=== PATIENT | female | born 1980 | race Caucasian/White ===

== ENCOUNTER 2021-03-21 12:04 | Emergency (ER) | payer OTHER ==
[~2021-03-21] VITALS: Ht 160 cm; Wt 77.1 kg
--- NOTE | 2021-03-21 12:08 | NUR ---
Patient to ER bed 05 to gown for evaluation. Side rails up.
--- NOTE | 2021-03-21 12:10 | NUR ---
Pt brought by self, A&Ox4, pt presents to ER with headache,weakness, nausea and bright red rectal bleed since Friday evening,skin pink and warm, cap refill <3, VSS, respirations even and unlabored, will cont to monitor.
[2021-03-21 12:31] VITALS: BP_SYST 105
--- NOTE | 2021-03-21 13:11 | NUR ---
PIV: 20G PIV STARTED TO RIGHT AC, PT TOLERATED WELL NO SIGNS OF INFILTRATION NOTED.
--- NOTE | 2021-03-21 13:15 | NUR ---
ROSIBEL Mohr at bedside examining patient.
--- NOTE | 2021-03-21 13:21 | NUR ---
C/C: PATIENT STATES SHE NOTICIED BRIGHT RED BLOOD COMING FROM HER RECTUM X 3 DAYS, COMPLAINS OF OWER ABD PAIN AND SEVERE NAUSEA. PATIENT STATES SHE HAS NOT EATEN ANYTHING X 3 DAYS DUE TO PAIN AND DISCOMFORT.
--- NOTE | 2021-03-21 13:46 | NUR ---
RN ROUNDS: PATIENT IN NO ACUTE DISTRESS, BED LOW AND LOCKED FOR SAFETY.
--- NOTE | 2021-03-21 14:15 | NUR ---
PATIENT BROUGHT TO CT SCAN
--- NOTE | 2021-03-21 14:30 | NUR ---
PATIENT RETURNED FROM CT SCAN
[2021-03-21 15:00] LABS: BASOPHILS # (AUTO) 0.1 K/uL (0.0-0.2); BASOPHILS % (AUTO) 0.7 % (0.0-2.0); EOSINOPHILS # (AUTO) 0.1 K/uL (0.0-0.4); EOSINOPHILS % (AUTO) 1.4 % (0.0-4.0); HEMATOCRIT 41.2 % (36-48); HEMOGLOBIN 14.2 g/dL (12.0-16.0); LYMPHOCYTES # (AUTO) 2.2 K/uL (1.0-5.5); LYMPHOCYTES % (AUTO) 23.2 % (20.5-51.5); MEAN CORPUSCULAR HEMOGLOBIN 30 pg (27-31); MEAN CORPUSCULAR HGB CONC 34 % (32-36); MEAN CORPUSCULAR VOLUME 86 fL (79.0-98.0); MONOCYTES # (AUTO) 0.7 K/uL (0.0-1.0); MONOCYTES % (AUTO) 7.3 % (1.7-9.3); NEUTROPHILS # (AUTO) 6.5 K/uL (1.8-7.7); NEUTROPHILS % (AUTO) 67.4 % (40.0-70.0); PLATELET COUNT (AUTO) 310 K/uL (130-430); RED BLOOD CELL COUNT(AUTO) 4.78 MIL/uL (4.2-6.2); RED CELL DISTRIBUTION WIDTH 12.9 % (9.0-15.0); WHITE BLOOD COUNT (AUTO) 9.7 K/uL (4.8-10.8)
[2021-03-21 15:23] LABS: CALCIUM 9.1 mg/dL (8.4-11.0); CREATININE 0.94 mg/dL (0.55-1.30); POTASSIUM 3.9 mmol/L (3.5-5.1)
[2021-03-21 15:24] LABS: PROTHROMBIN TIME 10.6 SECS (9.5-12.5)
[2021-03-21 15:47] LABS: ALBUMIN 3.7 g/dL (3.4-4.8); TOTAL BILIRUBIN 0.3 mg/dL (0.0-1.0)
[2021-03-21] MEDS ORDERED: CIPR500T5 PO (16:10)
--- NOTE | 2021-03-21 16:13 | NUR ---
Patient given written and verbal discharge instructions and verbalizes understanding. ER MD discussed with patient the results and treatment provided. Patient in stable condition. ID arm band removed. IV catheter removed intact and dressing applied, no active bleeding. Rx of CIPRO given. Patient educated on pain management and to follow up with PMD. Pain Scale 0/10 Opportunity for questions provided and answered. Medication side effect fact sheet provided.
[2021-03-21 16:14] VITALS: BP_SYST 110
== END 2021-03-21 16:13 | disposition home or self-care (01) ==
LOC: SED 12:04
DX: K52.89 Other specified noninfective gastroenteritis and colitis (principal); Z79.899 Other long term (current) drug therapy
CPT/HCPCS: 36415; 74177; 76376; 80053; 81025; 83690; 85025; 85610; 85730; 86886; 86900; 86901; 99291; Q9967